=== PATIENT | male | born 1945 | race Caucasian/White ===

== ENCOUNTER → 2016-11-01 | Outpatient (CLI) | payer OTHER, MEDICARE ==
--- NOTE | 2016-11-20 01:18 | ECWPNPC ---
PATIENT NAME: INDIRA CAO : 1945 GENDER: MALE VISIT DATE: 11/01/2016 DISCHARGE DATE: 11/01/16 165 VISIT LOCKED DATE TIME: PHYSICIAN: ISIAH DAVE RESOURCE: ISIAH DAVE REASON FOR APPOINTMENT 1. NECK PAIN HISTORY OF PRESENT ILLNESS NEW PATIENT CONSULT: WHEN DID YOUR PAIN FIRST START? . BRIEFLY DESCRIBE HOW YOUR PAIN STARTED? . HOW DOES YOUR PAIN CHANGE WITH TIME? . DOES YOUR PAIN AWAKEN YOU FROM SLEEP? . HOW MANY HOURS OF SLEEP DO YOU NORMALLY GET? . ANY DIAGNOSTIC TESTING? . FACILITY WHERE TESTS WERE DONE? ____. PAIN TREATMENT TREATMENT YES CANCER HAVE YOU EVER HAD ANY TYPE OF CANCER?NO NO. 71 YEAR OLD MALE PATIENT WITH HISTORY OF CHRONIC NECK PAIN. PATIENT DESCRIBES THE PAIN ACHING, SORE, AND TENDER WITH A PAIN SCORE OF 5/10. PATIENT STATES THE PAIN STARTED A YEAR AGO WHEN HE STARTED TO NOTICE POPPING AND CRACKING IN HIS CERVICAL AREA. PATIENT REPORTS THE PAIN HAS GOTTEN PROGRESSIVELY WORSE SINCE THEN. PATIENT STATES PHYSICAL THERAPY ONLY GAVE TEMPORARY RELIEF. PATIENT STATES THAT IT IS DIFFICULT TO MOVE HIS HEAD SOMETIMES THE PAIN IS VERY SEVERE. CURRENTLY THE PATIENT IS NOT USING ANY MEDICATION TO AID IN PAIN RELIEF. PATIENT DENIES UNEXPLAINABLE WEIGHT LOSS, FEVER, CHILLS, NEW CHANGES ON HIS URINARY OR BOWEL CONTROL. PAIN SCREENING: PATIENT HAS A COMPLAINT OF ACUTE OR CHRONIC PAIN :YES FALL RISK SCREENING: SCREENING :NO FALLS IN THE PAST YEAR TAYLOR INVENTORY: QUESTIONNAIRE ASSESSEDTBD SCORE VALUE CALCULATED TBD CURRENT MEDICATIONS TAKING HYDROCHLOROTHIAZIDE 12.5 UNSURE OF DOSAGE TABLET DIRECTED ORAL TAKING BLOOD PRESS MONITOR/M-L CUFF UNSURE OF MEDICATION AND DOSAGE MISCELLANEOUS DIRECTED TAKING FLONASE 50 MCG/DOSE SUSPENSION 2 SPRAYS IN EACH NOSTRIL NASALLY ONCE A DAY TAKING ASPIRIN 1 TAB ORAL TAKING OMEPRAZOLE 20MG 20MG TABLET ORAL TAKING NEBULIZER COMPRESSOR 1 MISCELLANEOUS DIRECTED P.O. DIRECTED DX: J18.9, J44.1 TAKING NEBULIZER/TUBING/MOUTHPIECE 1 KIT DIRECTED P.O. DIRECTED DX; J18.9, J44.1 TAKING XOPENEX 0.63 MG/3ML NEBULIZATION SOLUTION 3 ML INHALATION THREE TIMES A DAY TAKING PREDNISONE 20 MG TABLET 2 TABLETS WITH FOOD OR MILK ORALLY ONCE A DAY TAKING RAMIPRIL 10 MG CAPSULE 1 CAPSULE ORALLY ONCE A DAY TAKING SPIRIVA HANDIHALER 18 MCG CAPSULE 1 CAPSULE INHALATION ONCE A DAY TAKING LASIX 20 MG TABLET 1 TABLET ORALLY ONCE A DAY TAKING IBUPROFEN 800 MG TABLET 1 TABLET WITH FOOD OR MILK ORALLY DAILY TAKING FISH OIL 1000 MG CAPSULE DELAYED RELEASE 1 CAPSULE ORALLY ONCE A DAY NOT-TAKING BUSPIRONE HCL NOT-TAKING PRAVASTATIN 20 20 MG TABLET ORAL NOT-TAKING AUGMENTIN 875-125 MG TABLET 1 TABLET ORALLY TWICE A DAY NOT-TAKING LEVAQUIN 500 MG TABLET 1 TABLET ORALLY ONCE A DAY MEDICATION LIST REVIEWED AND RECONCILED WITH THE PATIENT PAST MEDICAL HISTORY COPD HYPERTENSION HYPERCHOLESTEROMIA ALLERGIES N.K.D.A. SURGICAL HISTORY SKIN TAG [id number] 1999 FAMILY HISTORY FATHER: , DIAGNOSED WITH HYPERTENSION MOTHER: , DIAGNOSED WITH HYPERTENSION SIBLINGS: ALIVE SON(S): ALIVE DAUGHTER(S): ALIVE 2 SIBLINGS HAVE DEMENTIA,. SOCIAL HISTORY GENERAL: TOBACCO USE ARE YOU A:FORMER SMOKER HOW LONG HAS IT BEEN SINCE YOU LAST SMOKED?5-10 YEARS ALCOHOL SCREENING POINTS2 INTERPRETATIONNEGATIVE OCCUPATION: RETIRED FROM SALES. DIET: NO ADDED SALT. EXERCISE: NOT ABLE TO DO MUCH DUE TO SOB. MARITAL STATUS: . OTHERS AT HOME: SPOUSE. PETS: DOG. EVANGELICAL [employer] LANGUAGES SPOKEN:CROATIAN EDUCATION LEVEL OF EDUCATION:NOT FINISHED [facility] PFS, CLERGY, PUBLIC HEALTH REFERRALS PFS REFERRAL NEEDED?NO CLERGY REFERRAL NEEDED?NO PUBLIC HEALTH REFERRAL NEEDED?NO WAS THE PROVIDER NOTIFIED OF ANY PERTINENT INFO?NO HAS THE PATIENT BEEN EDUCATED REGARDING HIS/HER PLAN OF CARE?YES HAS THE PATIENT BEEN EDUCATED REGARDING PAIN, THE RISK FOR PAIN, THE IMPORTANCE OF EFFECTIVE PAIN MANAGEMENT, AND THE PAIN ASSESSMENT PROCESS?YES PATIENT: ____. ADVANCE DIRECTIVES HEALTH CARE PROXY? PT STATES HE DOES HAVE PAPERWORK AND WILL BRING IN HOSPITALIZATION/MAJOR DIAGNOSTIC PROCEDURE CHF 2016 REVIEW OF SYSTEMS REVIEWED BY: PROVIDER: ISIAH DAVE MD . CONSTITUTIONAL: ANY CHANGE IN YOUR MEDICAL CONDITION? NO . CHILLS NO . FEVER NO . INFECTION: DO YOU HAVE NEW INFECTIONS? NO . DO YOU HAVE HISTORY OF MRSA? NO . MUSCULOSKELETAL: ANY NEW PATTERNS OF PAIN OR NUMBNESS? NO . SYTEMIC LUPUS NO . GASTROENTEROLOGY: ANY NEW CHANGE IN BOWEL CONTROL? NO . BARRETTS ESOPHAGUS NO . CIRRHOSIS NO . HEPATITIS NO . LIVER FAILURE NO . ACID REFLUX NO . UNEXPLAINED WEIGHT LOSS NO . GENITOURINARY: ANY NEW CHANGE IN BLADDER CONTROL? NO . IS THERE A CHANCE YOU COULD BE ? NO . HEMATOLOGY/LYMPH: DO YOU TAKE ANY BLOOD THINNERS? (FOR EXAMPLE- COUMADIN, PLAVIX, AGGRENOX, PLATEL, PRADAXA, OR XARELTO) NO . WHEN WAS YOUR LAST DOSE? DATE: TIME: . LOW PLATELET COUNT NO . SICKLE CELL DISEASE NO . VON WILLIEBRANDS NO . FACTOR V LEIDEN NO . THALLASEMIA NO . ANEMIA NO . EASY BRUISING NO . NEUROLOGY: HAVE YOU FALLEN IN THE PAST 6 MONTHS? NO . ANY NEW EXTREMITY NUMBNESS OR WEAKNESS? NO . HEAD INJURY NO . DEMENTIA NO . CEREBRAL PALSY NO . MULTIPLE SCLEROSIS NO . DIZZINESS NO . HEADACHE NO . STROKES NO . VERTIGO NO . CARDIOLOGY: DO YOU HAVE A PACEMAKER OR DEFIBRILLATOR? NO . ANGINA NO . HEART ATTACK NO . HEART SURGERY NO . CONGESTIVE HEART FAILURE/FLUID OVERLOAD NO . CHEST PAIN NO . HIGH BLOOD PRESSURE NO . IRREGULAR HEART BEAT NO . RESPIRATORY: HAVE YOU BEEN SICK IN THE PAST WEEK? NO . FEVER NO . FLU LIKE SYMPTOMS? NO . CPAP NO . BYPAP NO . ASTHMA NO . EMPHYSEMA NO . CHRONIC LUNG DISEASES NO . SHORTNESS OF BREATH ON EXERTION NO . DO YOU USE ANY TYPE OF TOBACCO (SMOKE, SMOKELESS, CHEW)? NO . COUGH NO . SNORING NO . INTEGUMENTARY: DO YOU HAVE ANY RASHES OR OPEN SORES? NO . ALLERGIC/IMMUNO: ARE YOU ALLERGIC TO SHELLFISH OR IV DYE? NO . ANY NEW ALLERGIES? NO . PSYCHIATRIC: DO YOU HAVE THOUGHTS OF HURTING YOURSELF OR SOMEONE ELSE? NO . ARE YOU ABUSED, NEGLECTED, OR IN AN UNSAFE ENVIRONMENT? NO . ENDOCRINOLOGY: ARE YOU DIABETIC? NO . THYROID DISORDER NO . OTHER: DO YOU NEED ANY PRESCRIPTIONS? NO . IF YES, PLEASE LIST: ____ . ANY NEW PROBLEMS WITH YOUR MEDICATIONS? NO . WHEN DID YOU LAST EAT? ____ . WHEN DID YOU LAST DRINK? ____ . WHAT DID YOU LAST DRINK? ____ . NAME OF PERSON DRIVING YOU HOME? ____ . DO YOU HAVE ANY OTHER QUESTIONS OR CONCERNS NO . VITAL SIGNS WT 237 LBS, HT 511 IN, BMI 0.64 INDEX, BP 146/93 MM HG, HR 60 /MIN, RR 20 /MIN, TEMP 97.6 F, OXYGEN SAT % 90. EXAMINATION : PATIENT IS ALERT O X 3 AND COOPERATIVE. TENDERNESS IN THE CERVICAL AREA AND PARASPINAL MUSCLE GROUP. BANDS OF TISSUE, RESTRICTION OF MOVEMENT, AND PRESENCE OF TRIGGER POINTS IN THE CERVICAL AREA. MRI OF THE CERVICAL AREA DONE ON 06/27/15 SHOWS MILD DEGENERATIVE CHANGES. ASSESSMENTS MYALGIA - M79.1 (PRIMARY) SPONDYLOSIS WITHOUT MYELOPATHY OR RADICULOPATHY, CERVICAL REGION - M47.812 TREATMENT MYALGIA NOTES: WE DICUSSED SEVERAL ISSUES WITH MR. CAO'S PAIN MANAGEMENT CASE. AT THIS TIME I WOULD LIKE THE PATIENT TO START CYMBALTA FOR THE [facility] [place] PAIN. WE DISCUSSED MULTIPLE INTERVENTIONS THAT MAY AID THE PATIENT IN PAIN RELIEF. WE DISCUSSED MOVING FORWARD WITH TRIGGER POINT INJECTIONS TO THE LEAST INVASIVE INJECTION POSSIBLE. WE DISCUSSED THE RISKS, BENENFITS, AND ALTNERATIVES OF THE INJECTION AND THE PATIENT WOULD LIKE TO PROCEED. IF THE TRIGGER POINT INJECTIONS DO NOT GIVE THE PATIENT ADEQUATE RELIEF WE DISCUSSED MOVING FORWARD WITH CERVICAL FACET BLOCKS. INSTRUCTIONS WERE GIVEN, QUESTIONS WERE ANSWERED, PATIENT REPORTS UNDERSTANDING AND AGREES WITH THE PLAN. I, JA LEONG, DOCUMENTED THE ABOVE INFORMATION ACTING A SCRIBE FOR DR. DAVE. I HAVE REVIEWED THE ABOVE DOCUMENT, WRITTEN BY JA MAZARIEGOS AND I VERIFY THAT IT IS ACCURATE. DEAR DR. [place]:THANK YOU FOR YOUR KIND REFERRAL OF MR. CAO. YOU WANT TO DISCUSS HER CASE WITH ME PLEASE CALL ME AT THE PAIN CENTER AT [phone]. SINCERELY,ISIAH DAVE, [facility]. OTHERS START CYMBALTA CAPSULE DELAYED RELEASE PARTICLES, 30 MG, 1 CAPSULE, ORALLY FOR PAIN, TWICE A DAY MDD2, 30 DAY(S), 60, REFILLS 1 NOTES: TRIGGER POINT INJECTION MATERIAL WAS PRINTED, REVIEWED AND GIVEN TO PT. PROCEDURE CODES FA211 ESTABILISHED PATIENT [facility] CHARGE DISPOSITION & COMMUNICATION FOLLOW UP TPI ELECTRONICALLY SIGNED BY ISIAH DAVE MD ON 11/19/2016 AT 06:32 PM EDT DISCLAIMER : THIS IS A VISIT SUMMARY EXTRACTED FROM THE [employer] CHART. IT IS NOT A COPY OF THE [employer] PROGRESS NOTE. MTDD
== END ==
LOC: M PAIN 15:30
PROVIDERS: ATTEND Anesthesiology
DX: G89.29 Other chronic pain (principal); M47.812 Spondylosis without myelopathy or radiculopathy, cervical region; M79.1 Myalgia; J44.9 Chronic obstructive pulmonary disease, unspecified; I10 Essential (primary) hypertension; E78.00 Pure hypercholesterolemia, unspecified; Z79.82 Long term (current) use of aspirin; Z79.52 Long term (current) use of systemic steroids; Z79.1 Long term (current) use of non-steroidal anti-inflammatories (NSAID); Z79.899 Other long term (current) drug therapy; Z87.891 Personal history of nicotine dependence

== ENCOUNTER → 2016-11-09 | Outpatient (CLI) | payer OTHER, MEDICARE ==
[~2016-11-09] MED LIST: BUPIVACAINE HCL 0.25% 10 ML VIAL As Ordered ONE; BUPIVACAINE HCL 0.25% 30 ML VIAL As Ordered ONE; TRIAMCINOLONE ACETONIDE SUSP 40 MG/ML VIAL (J3301) As Ordered ONE
--- NOTE | 2016-11-10 00:10 | ECWPNPC ---
PATIENT NAME: INDIRA CAO : 1945 GENDER: MALE VISIT DATE: 11/09/2016 DISCHARGE DATE: 11/09/16 1148 VISIT LOCKED DATE TIME: PHYSICIAN: ISIAH DAVE RESOURCE: ISIAH DAVE REASON FOR APPOINTMENT 1. TPI CERVICAL HISTORY OF PRESENT ILLNESS HISTORY OF PRESENT ILLNESS: PAIN THE PATIENT DESCRIBES THE PAIN... FALL RISK SCREENING: SCREENING :NO FALLS IN THE PAST YEAR CURRENT MEDICATIONS TAKING HYDROCHLOROTHIAZIDE 12.5 UNSURE OF DOSAGE TABLET DIRECTED ORAL , NOTES: 11/08/16 1000 TAKING BLOOD PRESS MONITOR/M-L CUFF UNSURE OF MEDICATION AND DOSAGE MISCELLANEOUS DIRECTED TAKING FLONASE 50 MCG/DOSE SUSPENSION 2 SPRAYS IN EACH NOSTRIL NASALLY ONCE A DAY, NOTES: 11/08/16 2100 TAKING ASPIRIN 1 TAB ORAL , NOTES: 11/08/16 1000 TAKING OMEPRAZOLE 20MG 20MG TABLET ORAL , NOTES: 11/08/16 1000 TAKING NEBULIZER COMPRESSOR 1 MISCELLANEOUS DIRECTED P.O. DIRECTED DX: J18.9, J44.1 TAKING NEBULIZER/TUBING/MOUTHPIECE 1 KIT DIRECTED P.O. DIRECTED DX; J18.9, J44.1 TAKING XOPENEX 0.63 MG/3ML NEBULIZATION SOLUTION 3 ML INHALATION THREE TIMES A DAY, NOTES: > 2 WEEKS TAKING PREDNISONE 20 MG TABLET 2 TABLETS WITH FOOD OR MILK ORALLY ONCE A DAY, NOTES: 11/01/16, DOESN'T TAKE CONSISTENTLY TAKING RAMIPRIL 10 MG CAPSULE 1 CAPSULE ORALLY ONCE A DAY, NOTES: 11/08/16 1000 TAKING SPIRIVA HANDIHALER 18 MCG CAPSULE 1 CAPSULE INHALATION ONCE A DAY, NOTES: 11/08/16 1000 TAKING LASIX 20 MG TABLET 1 TABLET ORALLY ONCE A DAY, NOTES: 11/08/16 1000 TAKING FISH OIL 1000 MG CAPSULE DELAYED RELEASE 1 CAPSULE ORALLY ONCE A DAY, NOTES: 11/08/16 1000 NOT-TAKING IBUPROFEN 800 MG TABLET 1 TABLET WITH FOOD OR MILK ORALLY DAILY, NOTES: > 2 WEEKS NOT-TAKING CYMBALTA 30 MG CAPSULE DELAYED RELEASE PARTICLES 1 CAPSULE ORALLY FOR PAIN TWICE A DAY MDD2, NOTES: HASN'T STARTED YET NOT-TAKING BUSPIRONE HCL NOT-TAKING PRAVASTATIN 20 20 MG TABLET ORAL NOT-TAKING AUGMENTIN 875-125 MG TABLET 1 TABLET ORALLY TWICE A DAY NOT-TAKING LEVAQUIN 500 MG TABLET 1 TABLET ORALLY ONCE A DAY MEDICATION LIST REVIEWED AND RECONCILED WITH THE PATIENT PAST MEDICAL HISTORY COPD HYPERTENSION HYPERCHOLESTEROMIA ALLERGIES N.K.D.A. REVIEW OF SYSTEMS REVIEWED BY: PROVIDER: . CONSTITUTIONAL: ANY CHANGE IN YOUR MEDICAL CONDITION? NO . CHILLS NO . FEVER NO . INFECTION: DO YOU HAVE NEW INFECTIONS? NO . DO YOU HAVE HISTORY OF MRSA? NO . MUSCULOSKELETAL: ANY NEW PATTERNS OF PAIN OR NUMBNESS? NO . GASTROENTEROLOGY: ANY NEW CHANGE IN BOWEL CONTROL? NO . GENITOURINARY: ANY NEW CHANGE IN BLADDER CONTROL? NO . IS THERE A CHANCE YOU COULD BE ? NO . HEMATOLOGY/LYMPH: DO YOU TAKE ANY BLOOD THINNERS? (FOR EXAMPLE- COUMADIN, PLAVIX, AGGRENOX, PLATEL, PRADAXA, OR XARELTO) NO . WHEN WAS YOUR LAST DOSE? DATE: TIME: . NEUROLOGY: HAVE YOU FALLEN IN THE PAST 6 MONTHS? NO . ANY NEW EXTREMITY NUMBNESS OR WEAKNESS? NO . CARDIOLOGY: DO YOU HAVE A PACEMAKER OR DEFIBRILLATOR? NO . RESPIRATORY: HAVE YOU BEEN SICK IN THE PAST WEEK? NO . FEVER NO . FLU LIKE SYMPTOMS? NO . COUGH NO . INTEGUMENTARY: DO YOU HAVE ANY RASHES OR OPEN SORES? NO . ALLERGIC/IMMUNO: ARE YOU ALLERGIC TO SHELLFISH OR IV DYE? NO . ANY NEW ALLERGIES? NO . PSYCHIATRIC: DO YOU HAVE THOUGHTS OF HURTING YOURSELF OR SOMEONE ELSE? NO . ARE YOU ABUSED, NEGLECTED, OR IN AN UNSAFE ENVIRONMENT? NO . ENDOCRINOLOGY: ARE YOU DIABETIC? NO . OTHER: DO YOU NEED ANY PRESCRIPTIONS? NO . IF YES, PLEASE LIST: ____ . ANY NEW PROBLEMS WITH YOUR MEDICATIONS? NO . WHEN DID YOU LAST EAT? ____11/08/16 . WHEN DID YOU LAST DRINK? ____11/08/16 . WHAT DID YOU LAST DRINK? ____MILK . NAME OF PERSON DRIVING YOU HOME? ____GIO . DO YOU HAVE ANY OTHER QUESTIONS OR CONCERNS NO . VITAL SIGNS WT 237 LBS, HT 511 IN, BMI 0.64 INDEX, BP 131/81 MM HG, HR 60 /MIN, RR 20 /MIN, TEMP 97.1 F, OXYGEN SAT % 90, NA INITIALS AW 1021. ASSESSMENTS MYALGIA - M79.1 (PRIMARY) PROCEDURES PN TRIGGER POINT INJECTION WITH STEROIDS PRE PROCEDURE DIAGNOSIS 1. MYALGIA 2. PAIN AT LEFT SHOULDER AREA AND LEFT NECK AREA POST PROCEDURE DIAGNOSIS 1. MYALGIA 2. PAIN AT LEFT SHOULDER AREA AND LEFT NECK AREA PROCEDURE TRIGGER POINT INJECTION AT LEFT SHOULDER AREA AND LEFT NECK AREA SURGEON DR. ISIAH DAVE DRILLER HELPER NONE ANESTHESIA LOCAL PRE PROCEDURE NOTE THE PATIENT HAS A HISTORY OF CHRONIC PAIN AT THE LEFT SHOULDER AREA AND LEFT NECK AREA. I EVALUATE THE PATIENT AND REVIEWED THE CHART. THERE IS EVIDENCE OF BANDS OF TISSUE WITH RESTRICTION OF MOVEMENT AND PRESENCE OF TRIGGER POINT AT THE AFFECTED AREA. I WENT OVER THE RISKS, ALTERNATIVES, AND BENEFITS ASSOCIATED WITH THIS PROCEDURE. THE PATIENT WOULD LIKE TO PROCEED AND GIVE CONSENT TO PERFORMED THE PROCEDURE. THE PATIENT DENIES UNEXPLAINABLE WEIGHT LOSS, FEVER, CHILLS, OR NEW CHANGES IN URINARY OR BOWEL CONTROL DESCRIPTION OF PROCEDURE THE PATIENT WAS BROUGHT TO THE PROCEDURE ROOM AND PLACED IN THE SITTING POSITION. THE AREA WAS CLEANED WITH ALCOHOL. THE PROCEDURE WAS DONE USING ASEPTIC STERILE TECHNIQUE. I CHECKED LATERALITY AND THE LEVEL WHERE THE PROCEDURE WAS GOING TO BE PERFORMED WITH THE PATIENT AND THE SUPPORTING STAFF AT THE MOMENT OF THE TIME OUT IN THE PROCEDURE ROOM. USING A 25-GAUGE NEEDLE, TRIGGER POINTS WERE INJECTED AT THE LEFT SHOULDER AREA AND LEFT NECK AREA WITH A TOTAL OF 40 ML OF BUPIVACAINE 0.25% AND KENALOG 40 MG. THERE WAS NO EVIDENCE OF BLOOD, PARESTHESIA OR CEREBROSPINAL FLUID DURING THE PROCEDURE. THE PATIENT WAS SENT TO THE RECOVERY ROOM. THE PATIENT WAS MOVING THE EXTREMITIES AND DOING WELL. THERE WAS NO COMPLICATION DURING THE PROCEDURE POST PROCEDURE NOTE THE PATIENT WILL BE SEEN IN A FOLLOW UP IN THE NEXT FEW WEEKS. INSTRUCTIONS WERE GIVEN, QUESTIONS WERE ANSWERED, AND THE PATIENT EXPRESSED UNDERSTANDING AND AGREES WITH THE PLAN. I, JA LEONG, DOCUMENTED THE ABOVE INFORMATION ACTING A SCRIBE FOR DR. DAVE. I HAVE REVIEWED THE ABOVE DOCUMENT, WRITTEN BY JA MAZARIEGOS AND I VERIFY THAT IT IS ACCURATE. PROCEDURE CODES 61393 INJ TRIGGER POINT 03/26 [facility] [place] & COMMUNICATION FOLLOW UP 3 WEEKS ELECTRONICALLY SIGNED BY ISIAH DAVE MD ON 11/09/2016 AT 05:54 PM EDT DISCLAIMER : THIS IS A VISIT SUMMARY EXTRACTED FROM THE [employer] CHART. IT IS NOT A COPY OF THE [employer] PROGRESS NOTE. CYNTHIA
== END ==
LOC: M PAIN 10:30
PROVIDERS: ATTEND Anesthesiology
DX: G89.29 Other chronic pain (principal); M25.512 Pain in left shoulder; M54.2 Cervicalgia; M79.1 Myalgia; J44.9 Chronic obstructive pulmonary disease, unspecified; I10 Essential (primary) hypertension; E78.00 Pure hypercholesterolemia, unspecified; Z79.82 Long term (current) use of aspirin; Z79.899 Other long term (current) drug therapy
CPT/HCPCS: 20552; J3301

== ENCOUNTER → 2017-01-14 | Outpatient (CLI) | payer OTHER, MEDICARE ==
--- NOTE | 2017-01-14 17:18 | REP ---
CT of the chest without IV contrast: Comparison is the outside study from [facility] with IV contrast dated 12/29/2015. There is honeycombing indicating pulmonary fibrosis throughout all lobes of both lungs, most advanced in the right upper lobe. This is similar to the prior study. There are no acute infiltrates or effusions. There are no masses or nodules. There are enlarged mediastinal nodes measuring up to 10 mm short axis diameter, similar to the prior study. In the absence of IV contrast, the current study is insensitive for hilar adenopathy, however, bilateral hilar adenopathy is identified on the prior study that was performed with IV contrast. The unenhanced thoracic aorta is unremarkable. Cardiac size normal. There is no pericardial effusion. The visualized upper abdominal contents are unremarkable. Impression: Findings are compatible with pulmonary fibrosis, focally worse in the right upper lobe. Mediastinal adenopathy. Signed by Tyrel Nolasco MD 01/14/2017 05:10 P
== END ==
LOC: M RAD 16:19
PROVIDERS: ATTEND Internal Medicine Pulmonary Disease
DX: J84.10 Pulmonary fibrosis, unspecified (principal)